=== PATIENT | female | born 1950 | race Caucasian/White ===

== ENCOUNTER → 2017-07-05 11:25 | Outpatient (CLI) | payer MEDICARE, SELFPAY ==
--- NOTE | 2017-07-05 11:27 | NM_ITS ---
History and Indications: Hypertension, diabetes, family history, fatigue and abnormal EKG. Procedure: Patient received a 0.4 mg of Lexiscan, resting heart rate was 62 bpm resting blood pressure 179/94, with Lexiscan maximum heart rate achieved was 97 bpm which is less than 85% of the maximum predicted heart rate and a blood pressure was 183/97. With Lexiscan patient complained of mild chest pressure and shortness of breath. Electrocardiogram: Resting electrocardiogram showed sinus rhythm, with Lexiscan there is less than 1.5 mm segment depression noted from the baseline EKG. The EKG portion of the Lexiscan Myoview is nondiagnostic secondary to baseline abnormal EKG. Cardiac stress and resting SPECT images: Cardiac stress and rest SPECT images were obtained using Tc 99 Myoview 32.1 mCi at stress and 10.4 mCi at rest. Gated SPECT further analysis of segmental wall motion and calculation of the ejection fraction also done. Cardiac stress and rest images show uniform myocardial activity without any segmental perfusion abnormality, computer derived ejection fraction is over 65% with no obvious regional wall motion abnormality, right ventricle is normal size and contractility. Conclusion: 1. The EKG portion of the Lexiscan Myoview is nondiagnostic. 2. No obvious scintigraphic evidence of reversible ischemia seen, computer derived ejection fraction is over 65% with no obvious regional wall motion abnormality, right ventricle is normal size and contractility. 3. Normal Lexiscan Myoview study.
--- NOTE | 2017-07-05 11:46 | HMH.ITSHM ---
metformin glipizide fluoxetine ducosate carvedilol buspirone benazepril atorvastatin aspirin amlodipine
== END ==
PROVIDERS: PCP Internal Medicine; Visit Provider Internal Medicine
DX: Z01.818 Encounter for other preprocedural examination (principal); R94.31 Abnormal electrocardiogram [ECG] [EKG]; I63.9 Cerebral infarction, unspecified; E78.4 Other hyperlipidemia; I15.8 Other secondary hypertension; E11.8 Type 2 diabetes mellitus with unspecified complications
CPT/HCPCS: 78452; 93017; A9502; J2785

== ENCOUNTER → 2017-09-06 20:16 | Outpatient (CLI) | payer MEDICARE, SELFPAY | PROVIDERS: PCP Internal Medicine; Visit Provider Internal Medicine | DX: R40.0 Somnolence (principal); I10 Essential (primary) hypertension; R06.83 Snoring; I63.9 Cerebral infarction, unspecified; G47.30 Sleep apnea, unspecified | CPT/HCPCS: 95811 ==

== ENCOUNTER → 2017-11-24 20:20 | Outpatient (CLI) | payer MEDICARE, SELFPAY | PROVIDERS: PCP Internal Medicine; Visit Provider Specialist | DX: G47.33 Obstructive sleep apnea (adult) (pediatric) (principal) | CPT/HCPCS: 95811 ==

== ENCOUNTER → 2018-09-26 07:07 | Outpatient (CLI) | payer MEDICARE, SELFPAY ==
--- NOTE | 2018-09-26 07:12 | CA_ITS ---
PROCEDURE: 2-D M-mode and color Doppler study INDICATIONS FOR THE TEST: Chest pain COPD Heart Murmur Tobacco Smoking Palpitations Fatigue Syncope Edema+ Hypertension+Diabetes Mellitus Rheumatic Fever SOB CARLOS Obesity Hyperlipidemia Family History HD Additional History CVA, QI PATIENT INFORMATION HEIGHT: 61 WEIGHT:176 GENDER: Female B/P:158/83 2-D/M-MODE INTERPRETATION: 2-D MEASUREMENTS OBSERVED VALUES IN CMS Right Ventricular Dimension (RVDd) 1.9 Interventricular Septum (Thickness)(IVsd) 1.6 Left Ventricular Internal Dimensions(LVIDd) 4.8 Left Ventricular Posterior Wall (Thickness)(LVPWd) 1.2 Aortic Root 3.1 Aortic Cusp Separation 1.1 Left Atrial Dimensions (LAD) 4.3 2D 1. Left atrium is mildly enlarged, left ventricle is normal size, mild concentric left ventricular hypertrophy, visually estimated ejection fraction 55% with no regional wall motion abnormality. 2. The right atrium and right ventricle are mildly enlarged with normal contractility. 3. The aortic valve is thickened and calcified with restriction the leaflet mobility. 4. The mitral and tricuspid valve leaflets are minimally thickened. There is mild mitral annular calcification present. 5. The pulmonic valve is poorly visualized. 6. No significant pericardial effusion noted. DOPPLER INTERROGATION: 1. The maximum aortic out flow velocity recorded study is 2.8 m/s, resulting in a mean gradient across valve of 17 mmHg, valve area is 1.4 sq cm represents mild to moderate aortic stenosis. There is no aortic insufficiency. 2. The mitral inflow velocity within normal range, there is no mitral stenosis, there is mild mitral regurgitation seen, grade 1 diastolic dysfunction seen with tissue Doppler evidence of raised left atrial pressure. 3. There is mild tricuspid regurgitation noted, calculated I ventricular systolic pressure is 48 mmHg consistent with moderate pulmonary hypertension, inferior vena cava is not well visualized. CONCLUSION: 1. Mild biatrial enlargement, normal left ventricular size, mild concentric left ventricular hypertrophy, visually estimated ejection fraction 55% with no regional wall motion abnormality, grade 1 diastolic dysfunction seen with tissue Doppler evidence of raised left atrial pressure. 2. Mildly enlarged right ventricle with normal contractility. 3. Thickened and calcified aortic valve with mean gradient across valve of 17 mmHg, aortic valve area 1.4 sq cm represents mild to moderate aortic aortic stenosis, there is no aortic insufficiency. 4. Mild mitral and tricuspi
[2018-09-26 09:50] LABS: Alanine Aminotransferase 34 U/L (12-78); Albumin Level 3.6 gm/dL (3.4-5.0); Albumin/Globulin Ratio 1.1 (1.1-1.8); Alkaline Phosphatase 77 U/L (46-116); Anion Gap 12.8 mEq/L (5-15); Aspartate Amino Transferase 15 U/L (15-37); Bilirubin,Total 0.3 mg/dL (0.2-1.0); Blood Urea Nitrogen 14 mg/dL (7-18); Calcium 9.2 mg/dL (8.5-10.1); Carbon Dioxide 30 mmol/L (21.0-32.0); Chloride 104 mmol/L (98-107); Chol/HDL Ratio 4.7 (1-3.5); Cholesterol 219 mg/dL (140-200); Creatinine,Serum 0.64 mg/dL (0.55-1.02); Estimated Glomerular Filt Rate 92 ml/min (>60); GFR (African American) 111 ML/MIN (>60); Globulin 3.3 gm/dl (1.3-3.2); Glucose 109 mg/dL (74-106); HDL Cholesterol 47 mg/dL (29-89); LDL Cholesterol 144 mg/dL (0-130); Potassium 4.8 mmoL/L (3.5-5.1); Sodium 142 mmol/L (136-145); Total Protein,Serum 6.9 gm/dL (6.4-8.2); Triglycerides 139 mg/dL (30-200); VLDL Cholesterol 28 mg/dL (0-40)
[2018-09-26 13:02] LABS: Hemoglobin A1C 6.6 % (0.0-7.0)
== END ==
PROVIDERS: PCP Internal Medicine; Visit Provider Urology
DX: G47.33 Obstructive sleep apnea (adult) (pediatric) (principal); I10 Essential (primary) hypertension; Z86.73 Personal history of transient ischemic attack (TIA), and cerebral infarction without residual deficits; E11.65 Type 2 diabetes mellitus with hyperglycemia; E78.5 Hyperlipidemia, unspecified; Z79.84 Long term (current) use of oral hypoglycemic drugs
CPT/HCPCS: 36415; 80053; 80061; 83036; 93306